=== PATIENT | male | born 1995 | race Caucasian/White ===

== ENCOUNTER 2018-05-04 18:53 | Emergency (ER) | payer MEDICAID ==
[~2018-05-04] VITALS: Ht 162.6 cm; Wt 92.4 kg
[2018-05-04 18:57] VITALS: Ht 162.6 cm; Wt 92.4 kg
[2018-05-04] MEDS ORDERED: CEPH-443 PO (22:47)
[2018-05-04] MEDS ORDERED: IBUPROFEN 600 MG TAB PO ONE (23:00)
[2018-05-04] MEDS ORDERED: DIPHTH/TET/ACEL PERTUSS (ADULT) 0.5 ML VIAL IM* ONE (23:00)
[2018-05-04 23:03] VITALS: BP 140/86; PULSE 91; RESP 18
--- NOTE | 2018-05-04 23:05 | ERD ---
ER Documentation Chief Complaint Chief Complaint HPI This is a 22-year-old male who presents to ED with puncture wound to left foot that occurred earlier today. Patient states as he was walking while wearing shoes he actually stepped on a nail. Patient denies decreased range of motion, painful range of motion, tingling, numbness, lack sensation. Patient is here seeking tetanus. ROS All systems reviewed and are negative except as per history of present illness. Medications Home Meds Active Scripts Cephalexin* (Keflex*) 500 Mg Capsule, 500 MG PO QID for 7 Days, CAP Prov:ESEQUIEL MASON PA-C 05/04/18 Allergies Allergies: Coded Allergies: No Known Drug Allergies (Verified Allergy, Mild, 09/04/10) PMhx/Soc History of Surgery: No Anesthesia Reaction: No Hx Neurological Disorder: Yes (SEIZURE) Hx Respiratory Disorders: No Hx Cardiac Disorders: No Hx Psychiatric Problems: No Hx Miscellaneous Medical Probl: No Hx Alcohol Use: No Hx Substance Use: No Hx Tobacco Use: No Smoking Status: Never smoker FmHx Family History: No diabetes Physical Exam Vitals Vital Signs Date Temp Pulse Resp B/P (MAP) Pulse Ox O2 O2 Flow FiO2 Time Delivery Rate 05/04/18 97.1 105 18 153/93 97 18:57 (113) Physical Exam Const: No acute distress Head: Atraumatic Eyes: Normal Conjunctiva ENT: Normal External Ears, Nose and Mouth. Neck: Full range of motion. No meningismus. Resp: Clear to auscultation bilaterally Cardio: Regular rate and rhythm, no murmurs Skin: Small puncture wound to left foot, no surrounding erythema, warmth, tenderness palpation, no purulent drainage, no lymphatic streaking Ext: No cyanosis, or edema, 5 out of 5 strength in bilateral lower extremity Neur: Awake and alert Psych: Normal Mood and Affect Results 24 hrs Current Medications Medications Dose Sig/Erick Start Time Status Last (Trade) Ordered Route PRN Stop Time Admin Dose Reason Admin Diphtheria/ 0.5 ml ONCE ONCE 05/04/18 DC 05/04/18 Tetanus/Acell IM* 23:00 22:49 Pertussis 05/04/18 23:01 (Adacel) Ibuprofen 600 mg ONCE ONCE 05/04/18 DC 05/04/18 (Motrin) PO 23:00 22:49 05/04/18 23:01 Procedures/MDM ER COURSE: The patient was given tetanus The medication was well tolerated and the patient reports improvement in symptoms. The patient was stable throughout ED course. I kept the patient and/or family informed of laboratory and diagnostic imaging results throughout the emergency room course. The patient was promptly evaluated and a treatment plan was devised based on H&P and other data. This plan was discussed with the patient who agreed and had no further questions or concerns prior to discharge. MEDICAL DECISION MAKING: This is a 22-year-old male presents ED with puncture wound to left foot after stepping on a nail earlier today. Patient is here seeking a tetanus shot. Patient was given tetanus in the emergency department. There is no evidence of foreign body, neurologic injury, vascular injury, laceration, fracture. Wound care was provided in the emergency department. Patient's vitals are stable and pt can be managed with close out patient follow up. Advised patient to return to ED or to be seen by primary care for a 48 hour wound check. Return to ED with any worsening symptoms and if patient starts experiencing fever, chills, purulent drainage, warmth, swelling at laceration site this may be indications that wound has become infected and patient may need antibiotics. DISPOSITION PLAN: We discussed follow up with the patient's primary care doctor within 24 to 48 hours. Patient counseled regarding my diagnostic impression and care plan. Prior to discharge all questions answered. Pt agrees with treatment plan and understands strict return precautions. Precautionary instructions provided including instructions to return to the ER if not improving or for any worsening or changing symptoms or concerns. SPECIALIST FOLLOW UP RECOMMENDED: None Patient has been advised to follow up with primary care in 1-2 days. Disclaimer: Inadvertent spelling and grammatical errors are likely due to EHR/dictation software use and do not reflect on the overall quality of patient care. Also, please note that the electronic time recorded on this note does not necessarily reflect the actual time of the patient encounter. Departure Diagnosis: Primary Impression: Puncture wound of left foot excluding toes without complication Encounter type: initial encounter Qualified Codes: S91.332A - Puncture wound without foreign body, left foot, initial encounter Condition: Stable Patient Instructions: Puncture Wound, Foot Referrals: COMM[facility]ITY CLIN[facility] YOU HAVE RECEIVED A MEDICAL SCREENING EXAM AND THE RESULTS INDICATE THAT YOU DO NOT HAVE A CONDITION THAT REQUIRES URGENT TREATMENT IN THE EMERGENCY DEPARTMENT. FURTHER EVALUATION AND TREATMENT OF YOUR CONDITION CAN WAIT UNTIL YOU ARE SEEN IN YOUR DOCTORS OFFICE WITHIN THE NEXT 1-2 DAYS. IT IS YOUR RESPONSIBILITY TO MAKE AN APPOINTMENT FOR FOLOW-UP CARE. IF YOU HAVE A PRIMARY DOCTOR --you should call your primary doctor and schedule an appointment IF YOU DO NOT HAVE A PRIMARY DOCTOR YOU CAN CALL OUR PHYSICIAN REFERRAL HOTLINE AT IF YOU CAN NOT AFFORD TO SEE A PHYSICIAN YOU CAN CHOSE FROM THE FOLLOWING [facility] [address] [facility] [address] [facility] [address] [facility] [address] [facility] [address] [facility]. [facility] [address] Additional Instructions: Patient advised to return to the ED immediately for new or worsening symptoms. Patient advised to follow up with primary care provider in the next 24-48 hours. Patient verbalized understanding and agrees with treatment plan and course of action. If patient has no primary care they may follow up with one of the [facility] clinics listed on the following page or one of the options listed below [facility] + [facility] [address] [place] [id number] or [facility] [address] [place] [address] or [facility] [address] [place] [address] ESEQUIEL MASON PA-C May 04, 2018 23:05
== END 2018-05-04 23:13 | disposition home or self-care (01) ==
LOC: FTE 18:53
DX: S91.332A Puncture wound without foreign body, left foot, initial encounter (principal); W45.0XXA Nail entering through skin, initial encounter; Y92.9 Unspecified place or not applicable; Z23 Encounter for immunization
CPT/HCPCS: 90471; 90715; Z7502; Z7610